=== PATIENT | male | born 1945 | race Caucasian/White ===

== ENCOUNTER 2020-09-13 09:51 | Emergency (ER) | payer MEDICARE ==
[~2020-09-13] VITALS: Ht 170.2 cm; Wt 79.1 kg
[2020-09-13 10:02] VITALS: BP 133/71
[2020-09-13 10:44] LABS: BASOPHILS % (AUTO) 1 % (0-1); EOSINOPHILS % (AUTO) 3 % (1-7); LYMPHOCYTES % (AUTO) 13 % (22-44); MEAN CORPUSCULAR HEMOGLOBIN 29.8 pg (27.5-34.5); MEAN CORPUSCULAR HGB CONC 33.5 g/dL (33.2-36.2); MEAN PLATELET VOLUME 7.7 fL (7.4-10.4); MONOCYTES % (AUTO) 9 % (2-9); NEUTROPHILS % (AUTO) 74 % (42-75); PLATELET COUNT 318 x10^3/uL (130-400); RED BLOOD COUNT 3.15 x10^6/uL (4.38-5.82); RED CELL DISTRIBUTION WIDTH 15.6 % (9.4-14.8)
[2020-09-13 10:57] LABS: ALBUMIN 2.4 g/dL (3.4-5.0); ANION GAP 10 mmol/L (5-15); CALCIUM 8.6 mg/dL (8.5-10.1); CHLORIDE 109 mmol/L (98-107)
[2020-09-13 11:01] LABS: ALANINE AMINOTRANSFERASE 144 U/L (12-78); ALKALINE PHOSPHATASE 187 U/L (45-117); BILIRUBIN,TOTAL 0.3 mg/dL (0.2-1.0); CREATININE 3.12 mg/dL (0.7-1.3); TOTAL PROTEIN 7.1 g/dL (6.4-8.2)
[2020-09-13 11:15] LABS: MICROSCOPIC AUTO
--- NOTE | 2020-09-13 11:32 | NUR ---
dr del valle spoke with dr tiarra ayers
--- NOTE | 2020-09-13 11:55 | NUR ---
PT LEFT WITHOUT DC INSTRUCTIONS AND PAPERWORK. CHARGE ADVISED AND PAPERWORK LEFT AT CHARGE DESK.
== END 2020-09-13 11:59 | disposition home or self-care (01) ==
LOC: ED 11:47
DX: N18.4 Chronic kidney disease, stage 4 (severe) (principal); R07.89 Other chest pain; R94.31 Abnormal electrocardiogram [ECG] [EKG]; E11.9 Type 2 diabetes mellitus without complications; E78.00 Pure hypercholesterolemia, unspecified
CPT/HCPCS: 36415; 71045; 80053; 81001; 85025; 93005; 99285